=== PATIENT | female | born 1970 | race Caucasian/White ===

== ENCOUNTER 2022-08-07 21:15 | Emergency (ER) | payer MEDICAID, OTHER ==
[~2022-08-07] VITALS: Ht 162.6 cm; Wt 91.6 kg
[2022-08-07] MEDS ORDERED: levETIRAcetam IV 1,000 MG in IV DEXTROSE 5% 100 ML IV ONE (21:45)
[2022-08-07] MEDS ORDERED: levETIRAcetam 500 MG/5 ML VIAL IV ONE (21:46)
--- NOTE | 2022-08-07 21:50 | NUR ---
Pt is noted in bed alert, responsive as she came from home C/O Recurring Seizures X1Day and S/P Change in MEDS from Topamax to Keppra. Pt care continue as awaits MD orders.
--- NOTE | 2022-08-07 21:54 | NUR ---
Keppra 1000mg IVPB given as ordered. Pt care continue.
[2022-08-07 21:57] LABS: HEMATOCRIT 36.9 % (31.2-41.9); MEAN CORPUSCULAR HEMOGLOBIN 26.9 uug (24.7-32.8); MEAN CORPUSCULAR VOLUME 80.7 fL (75.5-95.3); PLATELET COUNT (AUTO) 279 K/uL (179-408)
[2022-08-07 22:05] LABS: CREATININE 0.7 mg/dL (0.6-1.3); POTASSIUM 3.6 mmol/L (3.5-5.1)
[2022-08-07 22:11] LABS: BILIRUBIN,DIRECT 0.1 mg/dL (0.0-0.2); BILIRUBIN,TOTAL 0.4 mg/dL (0.2-1.0); TOTAL PROTEIN, SERUM 6.6 g/dL (6.4-8.2)
[2022-08-07] MEDS ORDERED: MAGNESIUM OXIDE 400 MG TABLET PO ONE (22:15)
[2022-08-07] MEDS ORDERED: MAGNESIUM OXIDE 400 MG TABLET ONE (22:20)
--- NOTE | 2022-08-07 22:21 | NUR ---
MAG-OX 400MG PO given as ordered. Pt care continue.
[2022-08-07] MEDS ORDERED: LEVO200T9 PO (22:27)
[2022-08-07] MEDS ORDERED: LIOT5TAB11 PO (22:27)
[2022-08-07] MEDS ORDERED: FENO134C PO (22:27)
[2022-08-07] MEDS ORDERED: ATOR20TA PO (22:27)
[2022-08-07] MEDS ORDERED: LEVE750T4 PO (22:27)
[2022-08-07] MEDS ORDERED: TOPI200T16 PO (22:27)
--- NOTE | 2022-08-07 23:41 | NUR ---
Pt is noted off the unit with family at her as all discharge instructions given with no S/S off distress or noted Seizure .
[2022-08-07 23:43] VITALS: BP 144/82
== END 2022-08-07 23:44 | disposition home or self-care (01) ==
LOC: ER 21:15
DX: R56.9 Unspecified convulsions (principal); E83.42 Hypomagnesemia; Z88.0 Allergy status to penicillin; Z91.040 Latex allergy status; Z79.899 Other long term (current) drug therapy
CPT/HCPCS: 99284; 96365; 80076; 80048; 83735; 85025; 36415; 93005; J1953 ×2; A4663